=== PATIENT | female | born 1960 | race Caucasian/White ===

== ENCOUNTER 2025-02-03 17:07 | Emergency (ER) | payer SELFPAY ==
[~2025-02-03] VITALS: Ht 165.1 cm; Wt 60.0 kg
[2025-02-03 17:11] VITALS: O2SAT 99
[2025-02-03 18:13] VITALS: BP 198/104; PULSE 98; RESP 16; TEMP 36.7; O2SAT 100
[2025-02-03] MEDS ORDERED: CEPH500C2 MT (21:08)
== END 2025-02-03 21:31 | disposition home or self-care (01) ==
LOC: ER 17:07
DX: S01.511A Laceration without foreign body of lip, initial encounter (principal); W10.1XXA Fall (on)(from) sidewalk curb, initial encounter; Y93.89 Activity, other specified; Y92.89 Other specified places as the place of occurrence of the external cause; Y99.8 Other external cause status
CPT/HCPCS: 99283; Z7610 ×2